=== PATIENT | female | born 1995 | race Two or more races ===

== ENCOUNTER 2024-03-24 19:07 | Emergency (ER) | payer MEDICAID, OTHER ==
[~2024-03-24] VITALS: Ht 172.7 cm; Wt 77.2 kg
[2024-03-24 20:12] VITALS: BP 123/73; PULSE 79; RESP 20; O2SAT 99
== END 2024-03-24 20:30 | disposition left against medical advice (07) ==
LOC: ER 19:07 → EDBD 19:07 → ER 20:30
DX: F41.9 Anxiety disorder, unspecified (principal); H92.09 Otalgia, unspecified ear; Z53.21 Procedure and treatment not carried out due to patient leaving prior to being seen by health care provider